=== PATIENT | female | born 2000 | race Caucasian/White ===

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

== ENCOUNTER 2022-06-17 13:34 | Emergency (ER) | payer MEDICAID ==
[~2022-06-17] VITALS: Ht 160 cm; Wt 59.1 kg
[2022-06-17 13:50] VITALS: TEMP 98.4
[2022-06-17 14:42] LABS: COLLECTION METHOD CLEAN CATCH
[2022-06-17 15:16] LABS: MUCOUS Present (NOT PRESENT); URINE BACTERIA Many /hpf (NONE SEEN)
[2022-06-17 15:19] LABS: PH 6.5 (5-8); URINE APPEARANCE Turbid (CLEAR/HAZY); URINE COLOR Yellow (YELLOW)
[2022-06-17 15:20] LABS: URINE BLOOD TRACE-INTACT (NEGATIVE); URINE GLUCOSE Negative (NEGATIVE); URINE KETONE Negative (NEGATIVE); URINE NITRATE Negative (NEGATIVE); URINE PROTEIN(semi-quant) Negative (NEGATIVE); URINE UROBILINOGEN 0.2 (NEGATIVE)
[2022-06-17] MEDS ORDERED: CEPHALEXIN500 M1 PO (15:29)
[2022-06-17 16:08] VITALS: BP 114/68; PULSE 70
== END 2022-06-17 16:09 | disposition home or self-care (01) ==
LOC: COL.ER 13:34
PROVIDERS: Nurse Practitioner
DX: O23.41 Unspecified infection of urinary tract in pregnancy, first trimester (principal); N39.0 Urinary tract infection, site not specified; Z88.0 Allergy status to penicillin; Z28.310 Unvaccinated for COVID-19; Z3A.09 9 weeks gestation of pregnancy

== ENCOUNTER 2023-12-15 20:31 | Emergency (ER) | payer MEDICAID ==
[~2023-12-15] VITALS: Ht 157.5 cm; Wt 65.9 kg
[~2023-12-15 20:31] MED LIST: CEPHALEXIN500 M1 PO; MOTRIN 800800 MG/TAB PO; PRENATAL TABLET PO
[2023-12-15 20:37] VITALS: TEMP 98.2
[2023-12-15 21:05] LABS: COLLECTION METHOD CLEAN CATCH
[2023-12-15 21:09] LABS: BASO # 0.1 K/mm3 (0.0-0.2); BASO % 0.7 % (0.0-2.0); EOS # 0.5 K/mm3 (0.0-0.7); GRAN # 4.7 K/mm3 (1.4-6.5); GRAN % 48.7 % (42.2-75.2); HEMOGLOBIN 12.7 g/dl (12.5-16.0); LYMPH # 3.9 K/mm3 (1.2-3.4); LYMPH % 40.2 % (20.0-51.0); MEAN CELL VOLUME 88 fl (80.0-100.0); MEAN CORPUSCULAR HEMOGLOBIN 30 pg (27-31); MEAN CORPUSCULAR HGB CONC 34 g/dl (33.0-37.0); MEAN PLATELET VOLUME 10.2 fl (7.4-10.4); MONO # 0.5 K/mm3 (0.1-0.6); MONO % 5.1 % (1.7-9.3); PLATELET COUNT 247 K/mm3 (130-400); RED BLOOD COUNT 4.19 M/mm3 (4.10-5.30); REDCELL DISTRIBUTION WIDTH-CV 12.1 % (11.5-14.5)
[2023-12-15 21:11] LABS: HEMATOCRIT 36.9 % (37.0-47.0)
[2023-12-15 21:12] LABS: URINE APPEARANCE CLEAR (CLEAR/HAZY); URINE BLOOD NEGATIVE (NEGATIVE); URINE COLOR YELLOW (YELLOW); URINE GLUCOSE NEGATIVE (NEGATIVE); URINE KETONE NEGATIVE (NEGATIVE); URINE NITRATE NEGATIVE (NEGATIVE); URINE PROTEIN(semi-quant) NEGATIVE (NEGATIVE); URINE UROBILINOGEN 0.2 E.U/dL (0.2-1.0)
[2023-12-15 21:29] LABS: ALBUMIN 3.9 g/dL (3.5-5.0); BILIRUBIN,TOTAL 0.3 mg/dL (0.2-1.2); C-REACTIVE PROTEIN 0.25 mg/dL (0.00-0.50); CALCIUM 8.5 mg/dL (8.4-10.2); CREATININE, serum 0.68 mg/dL (0.57-1.11); POTASSIUM 3.8 mEq/L (3.5-4.5)
[2023-12-15] MEDS ORDERED: Morphine 4 MG/ML VIAL IV ONE (22:30)
[2023-12-15 23:45] VITALS: BP 113/64; PULSE 76
== END 2023-12-15 23:55 | disposition short-term general hospital (02) ==
LOC: COL.ER 20:31
PROVIDERS: Nurse Practitioner Primary Care
DX: O26.899 Other specified pregnancy related conditions, unspecified trimester (principal); Z3A.00 Weeks of gestation of pregnancy not specified
CPT/HCPCS: J2270